=== PATIENT | female | born 1970 ===

== ENCOUNTER 2024-01-18 09:27 | Day surgery (SDC) | payer MEDICAID ==
[~2024-01-18] VITALS: Ht 170.2 cm; Wt 104.3 kg
[~2024-01-18 09:27] MED LIST: DIVALPROEX SOD250 MG PO; FARXIGA10 MG PO; INVEGA SUS234 MG/1.5 IM; JANUVIA50 MG PO; REMERON15 MG PO
[2024-01-18] MEDS ORDERED: FAMOTIDINE 10MG/ML 2ML SDV IV ONE (09:54)
[2024-01-18] MEDS ORDERED: SODIUM CHLORIDE 0.9% 1,000 ML IV ONE (09:54)
[2024-01-18 12:04] VITALS: BP 149/94
[2024-01-18] MEDS ORDERED: LIDOCAINE HCL 2% 2ML SDV IV ONE (14:32)
[2024-01-18] MEDS ORDERED: PROPOFOL 200 MG/20 ML VIAL IV ONE (14:32)
[2024-01-18] MEDS ORDERED: GLYCOPYRROLATE 0.2 MG/ML IV ONE (14:32)
== END 2024-01-18 12:16 | disposition home or self-care (01) ==
LOC: ENDO 09:27
PROVIDERS: ATTEND Internal Medicine Gastroenterology
DX: K92.1 Melena (principal); K59.09 Other constipation; K64.8 Other hemorrhoids